=== PATIENT | male | born 1985 | race Caucasian/White ===

== ENCOUNTER 2021-08-12 08:58 | Emergency (ER) | payer MEDICAID ==
[~2021-08-12] VITALS: Ht 165.1 cm; Wt 89.0 kg
[2021-08-12] MEDS ORDERED: HYDROCODONE/ACETAMINOPHEN 5/325MG TABLET PO ONE (10:45)
[2021-08-12 10:57] VITALS: BP 111/76
[2021-08-12] MEDS ORDERED: IBUP-2029 MT (12:21)
== END 2021-08-12 13:00 | disposition home or self-care (01) ==
LOC: ER 08:58
DX: S09.8XXA Other specified injuries of head, initial encounter (principal); S70.02XA Contusion of left hip, initial encounter; S00.83XA Contusion of other part of head, initial encounter; S60.211A Contusion of right wrist, initial encounter; Y08.89XA Assault by other specified means, initial encounter; Y93.9 Activity, unspecified; Y92.9 Unspecified place or not applicable
CPT/HCPCS: 70486; 71045; 73110; 73502; 99285